=== PATIENT | male | born 1955 | race Caucasian/White ===

== ENCOUNTER 2024-02-07 16:21 | Emergency (ER) | payer MEDICARE, BC ==
[~2024-02-07] VITALS: Ht 180.3 cm; Wt 80.0 kg
[2024-02-07 16:57] LABS: BASOPHILS 0.8 % (0-2); EOSINOPHILS 2.3 % (0-6); HEMATOCRIT 43.5 % (35.0-50.0); HEMOGLOBIN 14.3 g/dL (12.0-18.0); LYMPHOCYTES 10.6 % (24-44); MCH 29.7 (27-36); MCHC 32.8 g/dl (30-36); MCV 90.6 fl (81-99); MONOCYTES 7.7 % (0-12); NEUTROPHILS 78.6 % (39-80); PLATELET COUNT 349 K/uL (140-440); RDW 13.8 (10.5-15.0)
[2024-02-07] MEDS ORDERED: SODIUM CHLORIDE 0.9% 1,000 ML IV PRN (17:00)
[2024-02-07 17:08] LABS: ALBUMIN 4.4 g/dL (3.4-5.0); ALBUMIN/GLOBULIN RATIO 1.42 (1.1-2.4); ALCOHOL, MEDICAL <3 ng/dL (<3); ALKALINE PHOSPHATASE 58 U/L (46-116); ALT (SGPT) 42 U/L (14-59); ANION GAP 11.8 (7-21); AST (SGOT) 17 U/L (15-37); BILIRUBIN, TOTAL 0.8 ng/dL (0.2-1.0); BUN/CREATININE RATIO 17.68 (6.0-28.6); CALCIUM 10.4 mg/dL (8.5-10.1); CARBON DIOXIDE 31 mmol/L (21-32); CHLORIDE 98 mmol/L (98-107); CREATININE, SERUM 1.47 mg/dL (0.70-1.30); GLOMERULAR FILTRATION RATE,EST 51 mL/min (>60); POTASSIUM 3.8 mmol/L (3.5-5.1); PROTEIN, TOTAL 7.5 g/dL (6.4-8.2); UREA NITROGEN 26 mg/dL (7-18)
[2024-02-07 17:12] LABS: INR 0.94 (0.80-1.30); PARTIAL THROMBOPLASTIN TIME 26.4 Sec (22.9-41.3); PROTIME 11.9 Sec (11.2-14.2)
[2024-02-07] MEDS ORDERED: ATORVASTATIN CA80 MG PO (19:17)
[2024-02-07] MEDS ORDERED: METFORMIN HCL500 M1 PO (19:17)
[2024-02-07] MEDS ORDERED: HYDROCHLOROTHIA25 MG PO (19:17)
[2024-02-07] MEDS ORDERED: GLIPIZIDE ER10 MG PO (19:18)
[2024-02-07] MEDS ORDERED: GLIPIZIDE ER2.5 MG PO (19:18)
[2024-02-07] MEDS ORDERED: IRBESARTAN300 MG PO (19:18)
[2024-02-07 19:39] LABS: AMPHETAMINES, URINE NEGATIVE (NEGATIVE); BARBITURATES, URINE NEGATIVE (NEGATIVE); BENZODIAZEPINE, URINE NEGATIVE (NEGATIVE); BUPRENORPHINE, URINE NEGATIVE (NEGATIVE); CANNABINOID, URINE POSITIVE (NEGATIVE); COCAINE, URINE NEGATIVE (NEGATIVE); ECSTASY, URINE NEGATIVE (NEGATIVE); FENTANYL, URINE NEGATIVE (NEGATIVE); METHADONE, URINE NEGATIVE (NEGATIVE); OPIATES, URINE NEGATIVE (NEGATIVE); OXYCODONE, URINE NEGATIVE (NEGATIVE); PHENCYCLIDINE, URINE NEGATIVE (NEGATIVE)
[2024-02-07] MEDS ORDERED: ACETAMINOPHEN 500 MG TAB PO ONE (20:15)
[2024-02-07 22:00] VITALS: BP 102/90
--- NOTE | 2024-02-09 10:55 | EKG ---
[facility] [address] [facility] [place], [place] [address] Signed Normal sinus rhythm Normal ECG No previous ECGs available Confirmed by Hugo Garces MD ([id number]) on 02/09/2024 10:55:04 AM Electronically Signed By: HUGO GARCES MD 02/09/24 1055 PATIENT NAME: YANETH MELCHOR Electrocardiogram DATE OF : 53 PHYSICIAN: HUGO GARCES MD REPORT #: [id number] REPORT IS CONFIDENTIAL AND NOT TO BE RELEASED WITHOUT AUTHORIZATION
== END 2024-02-07 22:00 | disposition short-term general hospital (02) ==
LOC: ED 16:21
PROVIDERS: Emergency Medicine
DX: I63.9 Cerebral infarction, unspecified (principal); I10 Essential (primary) hypertension; Z79.84 Long term (current) use of oral hypoglycemic drugs; Z79.899 Other long term (current) drug therapy
CPT/HCPCS: 36415; 70450; 70496; 70498; 71045; 80053; 80307; 84484; 85025; 85610; 85730; 93005; 93010; 99285-25; A9270; G0480; J7030; Q9967